=== PATIENT | female | born 1945 | race Caucasian/White ===

== ENCOUNTER → 2017-02-21 | Outpatient (CLI) | payer OTHER ==
[~2017-02-21] MED LIST: ALPR1TAB2 PO; AMIT25TA9 PO; AMLO-218 PO; ASPI325T32 PO; CALC1TAB48 PO; EZET10TA3 PO; FOLI-49 PO; GABA300C16 PO; LEVO500V2 IJ; LOSARTAN; OMEP20CA16 PO; PRAV20TA2 PO; SAXA5TAB2 PO; TEMA30CA PO
--- NOTE | 2017-02-21 13:09 | RADRPT ---
PROCEDURE: HIDA scan with CCK CLINICAL INDICATION: 71 -year-old patient with abdominal pain. TECHNIQUE: Following the intravenous injection of 7.9 mCi of Tc-99m mebrofenin, multiple images of the abdomen were obtained up to 60 minutes post injection. The patient was then given an intraveno us injection of approximately 1.5 mcg of CCK and imaging acquisition was continued for additional 30 minutes. COMPARISON: No prior HIDA scans. FINDINGS: The liver is promptly visualized, demonstrates homogeneous distribution of radionuclide. There is visualization of the common bile duct, gallbladder, and gastrointestinal activity as a norm al time. Following CCK administration, there is evidence of borderline normal ejection fraction of the gallbl adder calculated to be 35 % (borderline normal is 35%-50%, normal is greater than 50%). IMPRESSION: Borderline normal ejection fraction of the gallbladder. RPTAT: HH .Charito Resendiz MD, Date Time Electronically viewed and signed by .Charito Resendiz MD, on 02/21/2017 13:09 .L/
== END | disposition home or self-care (01) ==
LOC: NUC 10:35
PROVIDERS: ATTEND Internal Medicine
DX: K81.9 Cholecystitis, unspecified (principal)
CPT/HCPCS: 78227

== ENCOUNTER 2017-03-20 06:33 | Day surgery (SDC) | payer OTHER ==
[2017-03-19 11:41] VITALS: BMI 26.5
[2017-03-20] VITALS (15 sets, daily range): BP systolic 101–130; BP diastolic 57–88; PULSE 74–97; RESP 13–21; Ht 162.6 cm; Wt 68.4 kg
[~2017-03-20] VITALS: Ht 162.6 cm; Wt 68.4 kg
[~2017-03-20 06:33] MED LIST changes: +CEFAZOLIN 2 GM/50 ML (PMX) 50 ML IVPB SCH; +SOD CHLORIDE 0.9% 1,000 ML IV SCH
[2017-03-20] MEDS ORDERED: CEFAZOLIN 1 GM INJ ONE (07:00)
[2017-03-20] MEDS ORDERED: LEVO112T42 PO (07:20)
[2017-03-20] MEDS ORDERED: TEMA30CA PO (07:20)
[2017-03-20] MEDS ORDERED: ASPI-664 PO (07:21)
[2017-03-20] MEDS ORDERED: PRAV20TA63 PO (07:22)
[2017-03-20] MEDS ORDERED: ALPR1TAB7 PO (07:23)
[2017-03-20] MEDS ORDERED: LINA5TAB PO (07:24)
[2017-03-20] MEDS ORDERED: AMLO-147 PO (07:27)
[2017-03-20] MEDS ORDERED: GABA300C16 PO (07:27)
[2017-03-20] MEDS ORDERED: TRAM-40 PO (07:28)
[2017-03-20] MEDS ORDERED: LOSA50TA6 PO (07:28)
[2017-03-20] MEDS ORDERED: SENN-53 PO (07:29)
[2017-03-20] MEDS ORDERED: BUPIVACAINE 0.25% (MPF) 30 ML INJ ONE (07:30)
[2017-03-20] MEDS ORDERED: EZET10TA3 PO (07:30)
[2017-03-20] MEDS ORDERED: FOLI-49 PO (07:35)
[2017-03-20] MEDS ORDERED: CYAN500T46 PO (07:35)
[2017-03-20] MEDS ORDERED: PYRI50TA80 PO (07:36)
[2017-03-20] MEDS ORDERED: MIDAZOLAM 1 MG/ML 2 ML INJ ONE (09:41)
[2017-03-20] MEDS ORDERED: LIDOCAINE 2% (SDV) 5 ML INJ ONE (10:21)
[2017-03-20] MEDS ORDERED: NEOSTIGMINE 3 MG/3 ML SYRINGE ONE (10:21)
[2017-03-20] MEDS ORDERED: ROCURONIUM 50 MG INJ ONE (10:21)
[2017-03-20] MEDS ORDERED: GLYCOPYRROLATE 0.4 MG INJ ONE (10:21)
[2017-03-20] MEDS ORDERED: PROPOFOL 20 ML ONE (10:21)
[2017-03-20] MEDS ORDERED: ONDANSETRON 4 MG INJ ONE (10:22)
--- NOTE | 2017-03-20 10:22 | OPR ---
Date/Time of Note Date/Time of Note DATE: 03/20/17 TIME: 10:19 Operative Report Procedure Date: Mar 20, 2017 Preoperative Diagnosis symptomatic gallstones Postoperative Diagnosis same Operation/Procedure Performed 1. laparoscopic cholecystectomy 2. therapeutic injection of subcutaneous local anesthesia Surgeon see signature line Icu Rn none Anesthesia Type: general Estimated Blood Loss: 0 - 10 ml's Transfusion none Specimen gallbladder Grafts/Implants none Complications none Pt Condition Post Procedure: stable Indications This is a 71-year-old female with symptomatic gallstones. She requests surgical excision of her gallbladder. Risks alternatives benefits and percent were discussed with patient. Patient expresses understanding consents to the operation. Procedure Description Patient is taken to the OR and prepped and draped in usual sterile fashion. Surgical timeout was performed. IV antibiotics were given. Infraumbilical transverse incision is made with a 15 blade. Dissection cautery was carried down to the fascia. The fascia was grasped with Ivan's and divided with curved Felton scissors. 0 Vicryl U stitch was placed to the fascia. Blueness on trocar is introduced pneumoperitoneum is established. Mid epigastric 12 mm optical trocar was placed under direct visualization. Right upper quadrant upper flank 5 mm optical trochars were placed under direct visualization. Upon initial inspection there is some adhesions to the gallbladder which were taken down bluntly. The gallbladder is grasped by the fundus and lateral and our direction. The cautery is used for lateral dissection this allowed mobilization of the cystic duct and careful dissection to allow visualization of the critical view. The cystic duct and cystic artery were divided with a 35 mm echelon vascular stapler due to thickened tissues. Clips are additionally applied to the staple line. The gallbladder was taken off the gallbladder bed. There is good hemostasis. The gallbladder is retrieved using Endo Catch bag. Ports removed under direct visualization. 0 Vicryl U stitch was tied down. Skin is closed and skin jeniffer. There appears to contains local anesthesia was injected throughout the incision site. Dressings were applied. Amie REYES Mar 20, 2017 10:22
[2017-03-20] MEDS ORDERED: HYDROCODONE/APAP (5/325) TAB PO ONE (10:30)
[2017-03-20] MEDS ORDERED: ALBUTEROL 0.5% (NEB) 2.5 MG/0.5 ML AMP ONE (10:35)
[2017-03-20] MEDS ORDERED: ALBUTEROL 0.083% (NEB) 2.5 MG/3 ML AMP HHN STA (10:37)
[2017-03-20] MEDS ORDERED: MIDAZOLAM 1 MG/ML 2 ML INJ IV STA (10:57)
[2017-03-20] MEDS ORDERED: morphine (1 MG/ML) 10ML SYRINGE IV PRN (11:00)
[2017-03-20] MEDS ORDERED: ONDANSETRON 4 MG INJ IV PRN (11:00)
[2017-03-20] MEDS ORDERED: FENTAnyl 50 MCG/ML VIAL IV PRN (11:00)
[2017-03-20] MEDS ORDERED: KETOROLAC 30 MG INJ IV PRN (11:00)
[2017-03-20] MEDS ORDERED: HYDROmorphONE (0.2 MG/ML) 10ML SYG IV PRN ×3 (11:00)
[2017-03-20] MEDS ORDERED: EPHEDrine SULFATE 50 MG/5 ML SYG IV PRN (11:00)
[2017-03-20] MEDS ORDERED: LABETALOL HCL 20MG INJ IV PRN (11:00)
[2017-03-20] MEDS ORDERED: hydrALAzine 20 MG INJ IV PRN (11:00)
[2017-03-20] MEDS ORDERED: METOCLOPRAMIDE 10 MG INJ IV PRN (11:00)
[2017-03-20] MEDS ORDERED: MEPERIDINE 25 MG INJ IV PRN (11:00)
[2017-03-20] MEDS: FENTAnyl 50 MCG/ML VIAL IV PRN ×2 (11:02→11:10)
[2017-03-20] MEDS ORDERED: ALBUTEROL/IPRATROPIUM (NEB) 3 ML AMP ONE (14:15)
== END 2017-03-20 17:03 | disposition home or self-care (01) ==
LOC: SDS 06:33
PROVIDERS: ATTEND Surgery
DX: K80.10 Calculus of gallbladder with chronic cholecystitis without obstruction (principal); E11.9 Type 2 diabetes mellitus without complications; I10 Essential (primary) hypertension; E66.9 Obesity, unspecified; Z68.25 Body mass index [BMI] 25.0-25.9, adult
CPT/HCPCS: 47562; 82962; 88304; 94664; J0690; J1885; J2250; J2405; J2710; J3010